=== PATIENT | female | born 2005 | race Caucasian/White ===

== ENCOUNTER 2023-11-24 19:34 | Emergency (ER) | payer OTHER ==
[~2023-11-24] VITALS: Ht 182.9 cm; Wt 90.9 kg
[2023-11-24 19:36] VITALS: BP 129/83; TEMP 98.4
[2023-11-24] MEDS ORDERED: dexAMETHasone 10 MG/ML VIAL PO ONE (22:15)
[2023-11-24 22:50] LABS: STREP A NEGATIVE
[2023-11-24 23:24] LABS: MONOSCREEN NEGATIVE
[2023-11-25 00:23] VITALS: PULSE 70
== END 2023-11-25 00:27 | disposition home or self-care (01) ==
LOC: COL.ER 19:34
PROVIDERS: Emergency Medicine
DX: B34.9 Viral infection, unspecified (principal); R05.9 Cough, unspecified; R09.81 Nasal congestion; R53.81 Other malaise; Z88.0 Allergy status to penicillin
CPT/HCPCS: J1100